=== PATIENT | male | born 1995 | race Caucasian/White ===

== ENCOUNTER → 2017-02-12 | Outpatient (CLI) | payer OTHER ==
--- NOTE | 2017-02-13 10:06 | KCIC ---
MR of the right knee Indication: Right knee pain after injury in June 2015. Pain anterior, medial and lateral. Technique: The standard multiplanar sequences are obtained. Findings: Medial meniscus: Mild signal at the posteroinferior corner of the medial meniscus, sagittal images 7 and 8, suspicious for a small peripheral tear. Lateral meniscus: Mild signal at the posterior horn, sagittal series 6, image 20 possibly a small peripheral tear. Anterior cruciate ligament: Intact Posterior cruciate ligament: Intact Medial collateral ligament: Intact. Iliotibial band: Intact. Posterolateral structures: Fibular collateral ligament, biceps tendon and popliteus tendon are intact. Extensor mechanism: Intact. Fluid: Moderate joint effusion. There is some mild irregular soft tissue density in the lateral patellar recess, but no clear-cut loose body. 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 There are areas of small full-thickness fissures of the lateral facet. Mild chondromalacia at the lateral femoral trochlea. Subjacent bone marrow edema. -medial compartment:Intact -lateral compartment:Intact Bones: Mild subchondral bone marrow edema at the medial tibial plateau and medial femoral condyle. Articular cartilage intact. Soft tissue: Unremarkable Lateral patellar tilt and subluxation. Tibial tubercle-trochlear groove distance measures 18 mm. Impression: 1. Lateral patellar tilt and subluxation. Tibial tubercle lateralization is 18 mm. 2. 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 Mild chondromalacia at the lateral femoral trochlea. Mild lateral patellofemoral subchondral marrow edema. 3. Probable small peripheral tear at the posteroinferior corner of the medial meniscus. 4. Possible small peripheral tear at the posterior horn of the lateral meniscus. Electronically signed by: Prince Sebastian MD (02/13/2017 10:02 AM) [facility]
== END | disposition home or self-care (01) ==
LOC: KCIC MRI 16:07
PROVIDERS: ATTEND Orthopaedic Surgery
DX: S83.011A Lateral subluxation of right patella, initial encounter (principal); M94.261 Chondromalacia, right knee; R60.9 Edema, unspecified; X58.XXXA Exposure to other specified factors, initial encounter; Y93.89 Activity, other specified; Y92.89 Other specified places as the place of occurrence of the external cause; Y99.8 Other external cause status
CPT/HCPCS: 73721

== ENCOUNTER 2018-01-15 17:21 | Emergency (ER) | payer OTHER ==
[~2018-01-15] VITALS: Ht 180.3 cm; Wt 102.1 kg
[2018-01-15 17:52] VITALS: BP 133/61
--- NOTE | 2018-01-15 18:18 | PHYS DOC ---
Past Medical History Past Medical History: Asthma Past Surgical History: Other Additional Past Surgical Histo: RIGHT KNEE REPAIR Alcohol Use: None Drug Use: None Adult General Chief Complaint Chief Complaint: NECK INJURY HPI HPI Patient is a 22 year old male who presents with a baseball for [facility] in the last 2 weeks he has had frontal midline neck pain and states he does not have any shortness of air but he is having a hard time swallowing solid foods but he can swallow soft foods better. Patient has good range of motion in his back but states it hurts when he sneezes or coughs. Rates his pain a 7 out of 10 and states ibuprofen does not help it. Patient states that he was seen at [facility] today and they did a C-spine x- ray of which I do have the CD disc for to upload and they were suspicious of a hyoid bone injury. Patient doesn't have any tenderness when I palpate the area but states it just hurts to swallow and when he sneezes or coughs. Review of Systems Review of Systems Constitutional: Denies fever or chills [] Eyes: Denies change in visual acuity, redness, or eye pain [] HENT: Denies nasal congestion or sore throat [] Respiratory: Denies cough or shortness of breath [] Cardiovascular: No additional information not addressed in HPI [] GI: Denies abdominal pain, nausea, vomiting, bloody stools or diarrhea [] : Denies dysuria or hematuria [] Musculoskeletal: Mid line neck pain with difficulty swallowing. Denies back pain or joint pain [] Integument: Denies rash or skin lesions [] Neurologic: Denies headache, focal weakness or sensory changes [] Endocrine: Denies polyuria or polydipsia [] All other systems were reviewed and found to be within normal limits, except as documented in this note. Allergies Allergies Allergies Coded Allergies Type Severity Reaction Last Updated Verified No Known Drug Allergies 01/15/18 No Physical Exam Physical Exam Constitutional: Well developed, well nourished, no acute distress, non-toxic appearance. [] HENT: Normocephalic, atraumatic, bilateral external ears normal, oropharynx moist, no oral exudates, nose normal. [] Eyes: PERRLA, EOMI, conjunctiva normal, no discharge. [] Neck: Normal range of motion, no tenderness, supple, no stridor. [] Cardiovascular:Heart rate regular rhythm, no murmur [] Lungs & Thorax: Bilateral breath sounds clear to auscultation [] Abdomen: Bowel sounds normal, soft, no tenderness, no masses, no pulsatile masses. [] Skin: Warm, dry, no erythema, no rash. [] Back: No tenderness, no CVA tenderness. [] Extremities: No tenderness, no cyanosis, no clubbing, ROM intact, no edema. [] Neurologic: Alert and oriented X 3, normal motor function, normal sensory function, no focal deficits noted. [] Psychologic: Affect normal, judgement normal, mood normal. [] Current Patient Data Vital Signs Vital Signs Date Time Temp Pulse Resp B/P (MAP) Pulse Ox O2 Delivery O2 Flow Rate FiO2 01/15/18 17:52 98.2 52 14 133/61 (85) 98 Room Air 98.2 EKG EKG [] Radiology/Procedures Radiology/Procedures CT Cervical spine Impressions: [facility] [address] [place] [address] IMAGING REPORT Signed PATIENT: JOSE ALBERTO SANDERSON ACCOUNT: [id number] : 1995 LOCATION: ER AGE: 22 SEX: M EXAM STATUS: REG ER ORD. PHYSICIAN: NANDO STEIN APRN REASON: neck injury PROCEDURE: CT CERVICAL SPINE WO CONTRAST PQRS Compliance statement: One or more of the following individualized dose reduction techniques were utilized for this examination: 1. Automated exposure control. 2. Adjustment of the mA and/or kV according to patient size. 3. Use of iterative reconstruction technique. Indication:football injury, neck pain. TECHNIQUE: CT of the cervical spine without IV contrast with multiplanar reformats. COMPARISON:None FINDINGS: The cervical spine is in normal anatomic alignment. The atlantoaxial joint interval is preserved. No compression deformities. Facet joints are in normal anatomic alignment. No acute fractures. The noncontrast appearance of the neck soft tissues within normal limits. Clear lung apices. IMPRESSION: No acute fractures. Electronically signed by: Carlo Mack DO (01/15/2018 6:43 PM) [facility] DICTATED and SIGNED BY: CARLO MACK DO DATE: 01/15/18 184 Course & Med Decision Making Course & Med Decision Making Patient is a 22 year old male who presents with a baseball for [employer] in the last 2 weeks he has had frontal midline neck pain and states he does not have any shortness of air but he is having a hard time swallowing solid foods but he can swallow soft foods better. Patient has good range of motion in his back but states it hurts when he sneezes or coughs. Rates his pain a 7 out of 10 and states ibuprofen does not help it. Patient states that he was seen at [facility] today and they did a C-spine x- ray of which I do have the CD disc for to upload and they were suspicious of a hyoid bone injury. Patient doesn't have any tenderness when I palpate the area but states it just hurts to swallow and when he sneezes or coughs. There is no swelling of the soft tissue or of the internal throat. There are no deformities seen. Speaks in full clear sentences. Lungs are clear to auscultation in all lobes. Heart rate regular ,no murmur. CT cervical spine shows No acute fractures. C-spine x-ray that the patient brought over from [facility] is suspicious for a fractured hyoid bone. Patient will need to follow up with his primary care physician. Have consult with Dr. Bucio on this patient. Dr Bucio consulted with the SYSTEM ARCHITECT that saw the patient at [place] and with ENT at . The ENT at states that the CT takes precedents over a plain film and even if it was broken that the treatment is just time and to avoid any injury to the neck. Dr Bucio went in and spoke with the patient and the patient agrees to follow up with his primary care. Patient is discharged in no distress and normal vital signs. [] Dragon Disclaimer Dragon Disclaimer This electronic medical record was generated, in whole or in part, using a voice recognition dictation system. Departure Departure Impression: Primary Impression: Neck complaint Disposition: HOME, SELF-CARE Condition: CRITICAL Referrals: NO PCP (PCP) Patient Instructions: Soft Tissue Injury of the Neck Additional Instructions: FOLLOW UP WITH YOUR PRIMARY CARE. NANDO STEIN INFORMATICIST Jan 15, 2018 18:18
--- NOTE | 2018-01-15 18:46 | RAD ---
PQRS Compliance statement: One or more of the following individualized dose reduction techniques were utilized for this examination: 1. Automated exposure control. 2. Adjustment of the mA and/or kV according to patient size. 3. Use of iterative reconstruction technique. Indication:football injury, neck pain. TECHNIQUE: CT of the cervical spine without IV contrast with multiplanar reformats. COMPARISON:None FINDINGS: The cervical spine is in normal anatomic alignment. The atlantoaxial joint interval is preserved. No compression deformities. Facet joints are in normal anatomic alignment. No acute fractures. The noncontrast appearance of the neck soft tissues within normal limits. Clear lung apices. IMPRESSION: No acute fractures. Electronically signed by: Carlo Mack DO (01/15/2018 6:43 PM) [facility]
== END 2018-01-15 19:50 | disposition home or self-care (01) ==
LOC: ER 17:21
DX: M54.2 Cervicalgia (principal); J45.909 Unspecified asthma, uncomplicated
CPT/HCPCS: 72125; 99284-25